=== PATIENT | female | born 1945 | race Caucasian/White ===

== ENCOUNTER → 2017-10-13 | Outpatient (CLI) | payer MEDICARE ==
[~2017-10-13] MED LIST: CYCL10TA PO; DICY20TA10 PO; ESTE1TAB4 PO; GLIM4TAB PO; HYDR-3366 PO; LEVO.075 PO; LEVO.1 PO; METF-324 PO; METF1000 PO; METHTAB PO; OMEP20TA93 PO; ROSU10 PO; ROSU40 PO; TRAM50TA PO; ZITH250T PO
== END ==
LOC: HORT 12:20
PROVIDERS: ATTEND Neurological Surgery
DX: M54.5 Low back pain (principal)
CPT/HCPCS: L0627

== ENCOUNTER → 2017-10-13 | Outpatient (CLI) | payer MEDICARE ==
[2017-10-13 11:54] LABS: AUTOMATED NEUTROPHIL # 3.4 TH/MM3 (1.8-7.7); BASOPHIL # 0.1 TH/MM3 (0-0.2); BASOPHIL % 0.8 % (0.0-2.0); EOSINOPHIL # 0.4 TH/MM3 (0-0.4); EOSINOPHIL % 5.5 % (0.0-4.0); HEMATOCRIT 39.4 % (35.0-46.0); LYMPH % 33.6 % (9.0-44.0); LYMPHOCYTE # 2.3 TH/MM3 (1.0-4.8); MEAN CELL VOLUME 87.3 FL (80.0-100.0); MEAN CORPUSCULAR HEMOGLOBIN 28.8 PG (27.0-34.0); MEAN PLATELET VOLUME 9.8 FL (7.0-11.0); MONO % 9.3 % (0.0-8.0); MONOCYTE # 0.6 TH/MM3 (0-0.9); NEUT % 50.8 % (16.0-70.0); PLATELET COUNT 284 TH/MM3 (150-450); RED BLOOD COUNT 4.51 MIL/MM3 (4.00-5.30); RED CELL DISTRIBUTION WIDTH 13.7 % (11.6-17.2); WHITE BLOOD COUNT 6.8 TH/MM3 (4.0-11.0)
[2017-10-13 12:03] LABS: PROTHROMBIN TIME - PATIENT 9.8 SEC (9.8-11.6)
[2017-10-13 12:30] LABS: ALBUMIN 3.7 GM/DL (3.4-5.0); AST (GOT) 22 U/L (15-37); BICARBONATE 24.7 MEQ/L (21.0-32.0); BLOOD UREA NITROGEN 17 MG/DL (7-18); CALCIUM 9.3 MG/DL (8.5-10.1); CHLORIDE 109 MEQ/L (98-107); CREATININE 1.15 MG/DL (0.50-1.00); GLOMERULAR FILTRATION RATE 46 ML/MIN (>89); GLUCOSE,FASTING 111 MG/DL (74-99); SODIUM (NA) 143 MEQ/L (136-145)
[2017-10-13 12:34] LABS: ALKALINE PHOSPHATASE 58 U/L (45-117); ALT (GPT) 30 U/L (10-53); TOTAL BILIRUBIN ADULT 0.4 MG/DL (0.2-1.0); TOTAL PROTEIN 7.4 GM/DL (6.4-8.2)
--- NOTE | 2017-10-13 12:44 | RADRPT ---
EXAM DATE/TIME: 10/13/2017 12:11 [facility] COMPARISON: No previous studies available for comparison. INDICATIONS : Evaluate for pneumonia. pneumothorax, or communicable disease. Pre op for surgery on 10/20/2017. MEDICAL HISTORY : None. SURGICAL HISTORY : None. ENCOUNTER: Initial ACUITY: 1 day PAIN SCORE: 0/10 LOCATION: Bilateral chest FINDINGS: PA and lateral views of the chest demonstrate the lungs to be symmetrically aerated without evidence of mass, infiltrate or effusion. The cardiomediastinal contours are unremarkable. Osseous structure s are intact. CONCLUSION: No evidence of acute cardiopulmonary disease. Misha Chaudhary MD on October 13, 2017 at 12:42 Board Certified Radiologist. This report was verified electronically.
[2017-10-13 13:10] LABS: BILIRUBIN, URINE NEG (NEG); BLOOD, URINE NEG (NEG); GLUCOSE,URINE NEG (NEG); KETONE, URINE NEG (NEG); NITRITE,URINE NEG (NEG); SQUAMOUS EPITHELIAL CELL URINE 3 /hpf (0-5); URINE COLOR YELLOW (YELLW/STRAW); URINE LEUKOCYTE ESTERASE NEG (NEG)
--- NOTE | 2017-10-13 20:29 | EKG ---
Date Performed: 10/13/2017 Time Performed: 11:21:00 PTAGE: 72 years EKG: Sinus rhythm WITH FIRST DEGREE AV BLOCK LOW QRS VOLTAGE IN PRECORDIAL LEADS NONSPECIFIC T-WAVE ABNORMALITY ABNORM AL ECG NO PREVIOUS TRACING DOCTOR: Dennis Antony Interpretating Date/Time 10/13/2017 20:28:10
== END ==
LOC: CPRE 10:52
PROVIDERS: ATTEND Neurological Surgery
DX: Z01.812 Encounter for preprocedural laboratory examination (principal); Z01.811 Encounter for preprocedural respiratory examination; Z01.810 Encounter for preprocedural cardiovascular examination; Z79.01 Long term (current) use of anticoagulants; M48.062 Spinal stenosis, lumbar region with neurogenic claudication; M51.36 Other intervertebral disc degeneration, lumbar region; M43.10 Spondylolisthesis, site unspecified; M48.8X6 Other specified spondylopathies, lumbar region; M54.5 Low back pain; I44.0 Atrioventricular block, first degree
CPT/HCPCS: 36415; 71046; 80053; 81001; 85025; 85610; 85730; 87640; 87641; 93005

== ENCOUNTER 2017-10-19 13:30 | Inpatient (IN) | payer MEDICARE ==
[~2017-10-19] VITALS: Ht 171.4 cm; Wt 80.6 kg
[~2017-10-19 13:30] MED LIST changes: -CYCL10TA PO; -DICY20TA10 PO; -GLIM4TAB PO; -HYDR-3366 PO; -LEVO.1 PO; -METF-324 PO; -METHTAB PO; -ROSU40 PO; -TRAM50TA PO; -ZITH250T PO
[2017-10-20] MEDS ORDERED: LACTATED RINGER'S 1000 ML IV PRN (06:00)
[2017-10-20] MEDS ORDERED: SODIUM CHLORID 0.9% 500 ML IV PRN (06:00)
[2017-10-20] MEDS ORDERED: METOPROLOL TARTRATE 25 MG TAB PO PRN (06:00)
[2017-10-20] MEDS ORDERED: CHLORHEXIDINE GLUCONATE 2 % 1 PACK (2 CLOTHS) TOPICAL PRN (06:00)
[2017-10-20] MEDS ORDERED: POVIDONE IODINE 5% (ANTISEPSIS KIT) 4 APPLICATIONS EACH NARE PRN (06:00)
[2017-10-20] MEDS ORDERED: VANCOMYCIN 1 GM/200 ML PREMIX ON-CALL IV SCH (06:15)
[2017-10-20] MEDS ORDERED: SODIUM CHLOR 0.9% 1000 ML INJ 1,000 ML IV SCH (06:15)
[2017-10-20] MEDS ORDERED: APREPITANT 40 MG CAP ONE (08:18)
[2017-10-20] MEDS ORDERED: THROMBIN (TOPICAL) 5,000 UNIT VIAL ONE (08:36)
[2017-10-20] MEDS ORDERED: BUPIVACAINE/EPINEPHRINE 0.5% 50 ML VIAL ONE (08:36)
[2017-10-20] MEDS ORDERED: GELFOAM SIZE 100 ONE (08:36)
[2017-10-20] MEDS ORDERED: VANCOMYCIN HCL 1000 MG VIAL ONE ×2 (08:36→11:49)
[2017-10-20] MEDS ORDERED: APREPITANT 40 MG CAP PO ONE (09:00)
[2017-10-20] MEDS ORDERED: ACETAMINOPHEN 1000 MG/100 ML 100 ML IV ONE (09:46)
[2017-10-20] MEDS ORDERED: PROPOFOL 200 MG/20 ML AMP IV ONE (12:00)
[2017-10-20] MEDS ORDERED: NEOSTIGMINE 5 MG/5 ML SYRINGE IV PUSH ONE (12:00)
[2017-10-20] MEDS ORDERED: LACTATED RINGER'S 1000 ML INJ 2,000 ML IV ONE (12:00)
[2017-10-20] MEDS ORDERED: DEXAMETHASONE SOD PHOS 4 MG/ML VIAL IV ONE (12:00)
[2017-10-20] MEDS ORDERED: PHENYLEPH/NS 1000 MCG/10 ML SYR IV ONE (12:00)
[2017-10-20] MEDS ORDERED: GLYCOPYRROLATE 1 MG/5 ML SYRINGE IV PUSH ONE (12:00)
[2017-10-20] MEDS ORDERED: ePHEDrine/NS 25 MG/5 ML SYRINGE IV ONE (12:00)
[2017-10-20] MEDS ORDERED: ROCURONIUM INJ 50 MG/5 ML SYRINGE IV PUSH ONE (12:00)
[2017-10-20] MEDS ORDERED: ONDANSETRON HCL 4 MG/2 ML VIAL IV ONE (12:00)
[2017-10-20] MEDS ORDERED: LIDOCAINE HCL 1% PF 5 ML SYRINGE OTHER ONE (12:00)
--- NOTE | 2017-10-20 12:27 | PD.OP ---
Tita Terry MD Operative Report Date of Surgery: Oct 20, 2017 Preoperative Diagnosis: Lumbar L4-5 facet and ligamentum flavum hypertrophy with disc protrusion and degenerative disc disease with grade 1 spondylolisthesis and spinal and foraminal stenosis; intractable low back pain with radiculopathy and neurogenic claudication Postoperative Diagnosis: Same Procedure: Lumbar L4-5 transforaminal interbody fusion; L4-5 pedicle screw fixation; L4 and L5 decompressive laminectomy with foraminotomy and discectomy; L4-5 interbody cage placement; microsurgical technique Anesthesia: Gen. endotracheal by Shy singh Surgeon: Darin Welch M.D. Child Psychology Teacher(s): Drea Colby Operation and Findings: Following initiation of general endotracheal anesthesia, the patient had a Rose catheter placed along with sequential compression devices. A gram of vancomycin was administered intravenously and he was turned in a prone position on a Jc frame, on a Chandra table, and all pressure points adequately padded. The lumbosacral region was then prepped with Chloraprep and sterilely draped with Ioban along the usual sterile draping. A right paraspinal skin incision was then made extending from the L4-L5 level after infiltrating the skin with 0.5% Marcaine with epinephrine solution extending down through the fascia. The muscle fibers were split using avascular fatty plane and detached from the underlying facets, transverse process and lateral portion of lamina on the right side and a self-retaining retractor used for exposure. Intraoperative fluoroscopy was also used for level of confirmation along with microscope magnification for further dissection. There was significant facet and ligamentum flavum hypertrophy noted at the L4-5 levels. Right L4-5 facet was resected with a drill bit along with the lamina and there was severe foraminal and lateral recess stenosis from hypertrophied ligamentum flavum and facet which were decompressed bilaterally through the unilateral approach. There was significant disc height collapse along with disc protrusion also leading to the foraminal stenosis. Epidural hemostasis was achieved with bipolar cautery and Gelfoam with thrombin. Subsequently entered into the disc space at the L4-5 level with a #15 blade and lola were used for discectomy. I then placed PEEK cage packed with local autograft bone and more local autograft bone was packed adjacent to the cage in interspace for added interbody fusion. With placement of the cage, I was able to distract the interspace and opened up the foramen further bilaterally. Subsequently in order to facilitate the fusion and provide stabilization, pedicle screw fixation was undertaken using Husser spine screws on entry point at the right L4-5 levels at the junction of the transverse process and facet. Subsequently using AP and lateral fluoroscopy tap and screw placement. The screws were then connected with a katie and locked in place with caps. The construct appeared very secure at this point. The area was then copiously irrigated with Vancomycin solution and powder. The retractors were removed and the bipolar cautery used for hemostasis. The muscle fascia was then approximated using 2-0 Vicryl interrupted stitches and then 3-0 Vicryl subcuticular stitches also placed in interrupted fashion. The final skin closure was completed with Mastisol and Steri-Strips. A sterile dressing was then applied. The patient then turned in supine position, extubated and taken to recovery room. There were no intraoperative complications. All sponge and needle counts were correct at the end of procedure. Estimated blood loss about 100 ml. Darin Welch MD Oct 20, 2017 12:27
[2017-10-20] MEDS ORDERED: MAGNESIUM SULFATE INJ 2 GM in SODIUM CHLORIDE 0.9% INJ 100 ML IV PRN (12:30)
[2017-10-20] MEDS ORDERED: ALUMINUM/MAGNESIUM/SIMETH 30 ML CUP PO PRN (12:30)
[2017-10-20] MEDS ORDERED: POTASSIUM CHLOR 20 MEQ PREMIX 100 ML IV PRN (12:30)
[2017-10-20] MEDS ORDERED: SODIUM CHLORIDE 0.9% FLUSH 10 ML FLUSH IV FLUSH PRN (12:30)
[2017-10-20] MEDS ORDERED: CALCIUM GLUCONATE INJ 1 GM in SODIUM CHLORIDE 0.9% INJ 100 ML IV PRN (12:30)
[2017-10-20] MEDS ORDERED: MENTHOL LOZENGE BUCCAL PRN (12:30)
[2017-10-20] MEDS ORDERED: GLUCAGON 1 MG/ML VIAL OTHER PRN (12:30)
[2017-10-20] MEDS ORDERED: DEXTROSE 50% IN WATER 50 ML VIAL(D50) IV PUSH PRN (12:30)
[2017-10-20] MEDS ORDERED: ZOLPIDEM TARTRATE 5 MG TAB PO PRN (12:30)
[2017-10-20] MEDS ORDERED: cloNIDine HCL 0.1 MG TAB PO PRN (13:00)
[2017-10-20] MEDS ORDERED: LACTULOSE SYRUP 20 GM/30 ML CUP PO PRN (13:00)
[2017-10-20] MEDS ORDERED: MORPHINE SULFATE 4 MG/ML INJ IV PUSH PRN (13:00)
[2017-10-20] MEDS ORDERED: CYCLOBENZAPRINE HCL 10 MG TAB PO PRN (13:00)
[2017-10-20] MEDS ORDERED: SENNOSIDES 8.6 MG TAB PO PRN (13:00)
[2017-10-20] MEDS ORDERED: ACETAMINOPHEN/HYDROcodone 325 MG/10 MG TAB PO PRN (13:00)
[2017-10-20] MEDS ORDERED: RESP: ALBUTEROL 2.5 MG/3 ML NEB (PRN) NEB (13:00)
[2017-10-20] MEDS ORDERED: ACETAMINOPHEN 325 MG TAB PO PRN (13:00)
[2017-10-20] MEDS ORDERED: MAGNESIUM HYDROXIDE SUSP 30 ML CUP PO PRN (13:00)
[2017-10-20] MEDS ORDERED: BISACODYL 10 MG SUPP RECTAL PRN (13:00)
[2017-10-20] MEDS ORDERED: ONDANSETRON HCL 4 MG/2 ML VIAL IV PUSH PRN (13:00)
[2017-10-20] MEDS ORDERED: PROMETHAZINE INJ 25 MG/ML VIAL IM PRN (13:00)
--- NOTE | 2017-10-20 13:01 | RADRPT ---
EXAM DATE/TIME: 10/20/2017 08:56 [facility] COMPARISON: No previous studies available for comparison. INDICATIONS : Post-op L4-L5 posterior lumbar fusion. MEDICAL HISTORY : None. SURGICAL HISTORY : None. ENCOUNTER: Initial ACUITY: 1 day PAIN SCORE: Non-responsive. LOCATION: Lumbar spine. FINDINGS: Two view examination was performed. Transpedicular screws are seen at the right L4 and L5 levels with a stabilization device at the L4-5 disc space. The hardware appears well placed.. CONCLUSION: Successful placement of hardware at the L4-L5 level. Misha Liu MD on October 20, 2017 at 12:59 Board Certified Radiologist. This report was verified electronically.
--- NOTE | 2017-10-20 13:02 | RADRPT ---
EXAM DATE/TIME: 10/20/2017 08:56 [facility] COMPARISON: No previous studies available for comparison. INDICATIONS : L4-L5 posterior lumbar fusion. Level localization. MEDICAL HISTORY : None. SURGICAL HISTORY : None. ENCOUNTER: Initial ACUITY: 1 day PAIN SCORE: Non-responsive. LOCATION: Lumbar spine. FINDINGS: A single lateral view of the lumbar spine was performed. There is a surgical asymmetric towards the p osterior elements of L4 and L5. CONCLUSION: Localization as described above. Misha Liu MD on October 20, 2017 at 13:00 Board Certified Radiologist. This report was verified electronically.
[2017-10-20] MEDS ORDERED: *morphine SULFATE 8 MG/ML PERIprocedure ONLY ONE (13:08)
[2017-10-20] MEDS: NS + KCL 20 MEQ INJ 1,000 ML IV SCH ×2 (13:15→22:53)
[2017-10-20] MEDS ORDERED: DO NOT ADM ANY ANTICOAGULANT DRUGS PRN (13:15)
[2017-10-20 13:31] LABS: AUTOMATED NEUTROPHIL # 8.1 TH/MM3 (1.8-7.7); BASOPHIL # 0.1 TH/MM3 (0-0.2); BASOPHIL % 0.5 % (0.0-2.0); EOSINOPHIL # 0.2 TH/MM3 (0-0.4); EOSINOPHIL % 1.7 % (0.0-4.0); HEMATOCRIT 36.4 % (35.0-46.0); LYMPH % 14.7 % (9.0-44.0); LYMPHOCYTE # 1.5 TH/MM3 (1.0-4.8); MEAN CELL VOLUME 86.5 FL (80.0-100.0); MEAN CORPUSCULAR HEMOGLOBIN 28.4 PG (27.0-34.0); MEAN CORPUSCULAR HGB CONC 32.9 % (32.0-36.0); MEAN PLATELET VOLUME 9.6 FL (7.0-11.0); MONO % 2.2 % (0.0-8.0); MONOCYTE # 0.2 TH/MM3 (0-0.9); NEUT % 80.9 % (16.0-70.0); PLATELET COUNT 264 TH/MM3 (150-450); RED BLOOD COUNT 4.21 MIL/MM3 (4.00-5.30); RED CELL DISTRIBUTION WIDTH 13.7 % (11.6-17.2)
[2017-10-20 13:48] LABS: BICARBONATE 25.4 MEQ/L (21.0-32.0); CALCIUM 8.5 MG/DL (8.5-10.1); CREATININE 1.16 MG/DL (0.50-1.00); MAGNESIUM 1.9 MG/DL (1.5-2.5)
[2017-10-20 16:00] VITALS: BP 111/59; PULSE 90; RESP 17; TEMP 97.2; O2SAT 95
[2017-10-20] MEDS: INSULIN NovoLIN REGULAR SUPPLEMENTAL SCALE SQ SCH ×2 (17:00→20:54)
[2017-10-20] MEDS: ACETAMINOPHEN/HYDROcodone 325 MG/10 MG TAB PO PRN ×2 (18:46→22:51)
[2017-10-20 20:35] VITALS: BP 101/55; PULSE 95; RESP 17; TEMP 98.7; O2SAT 95
[2017-10-20] MEDS: DOCUSATE SODIUM 50 MG/SENNA 8.6 MG TAB PO SCH (20:53)
[2017-10-20] MEDS: SODIUM CHLORIDE 0.9% FLUSH 10 ML FLUSH IV FLUSH SCH (20:55)
[2017-10-20 22:56] VITALS: BP 104/55; PULSE 97; RESP 17; TEMP 97.1; O2SAT 96
[2017-10-20 23:46] VITALS: BP 164/72; PULSE 86; RESP 17; TEMP 99.3; O2SAT 98
[2017-10-21] MEDS: ACETAMINOPHEN/HYDROcodone 325 MG/10 MG TAB PO PRN (03:30)
[2017-10-21 03:38] VITALS: BP 104/60; PULSE 89; RESP 17; TEMP 97.6; O2SAT 95
[2017-10-21] MEDS ORDERED: GLIM4TAB PO (05:13)
[2017-10-21] MEDS ORDERED: TRAM50TA PO (05:13)
[2017-10-21] MEDS ORDERED: LEVOTHYROXINE SODIUM 75 MCG TAB PO SCH (06:00)
[2017-10-21 08:00] VITALS: BP 112/58; PULSE 92; RESP 16; TEMP 97.9; O2SAT 94
[2017-10-21] MEDS: SODIUM CHLORIDE 0.9% FLUSH 10 ML FLUSH IV FLUSH SCH ×2 (09:00→21:47)
[2017-10-21] MEDS: ESTROGEN ESTERIF/ME TESTOST 0.625 MG/1.25 MG TAB PO SCH (09:00)
[2017-10-21] MEDS: ATORVASTATIN 20 MG TAB PO SCH (09:00)
[2017-10-21] MEDS ORDERED: PANTOPRAZOLE SOD 40 MG DELAYED RELEASE TAB PO SCH (09:00)
[2017-10-21] MEDS: PANTOPRAZOLE SOD 20 MG DELAYED RELEASE TAB PO SCH (09:20)
[2017-10-21] MEDS: DOCUSATE SODIUM 50 MG/SENNA 8.6 MG TAB PO SCH ×2 (09:20→21:42)
[2017-10-21] MEDS: NS + KCL 20 MEQ INJ 1,000 ML IV SCH ×2 (09:24→18:19)
--- NOTE | 2017-10-21 10:57 | HHI.NSPN ---
(Jabari Dorado) History Chief Complaint: Mild incisional pain. (Jabari Dorado) Interval History 10/21/17: Pt s/p Lumbar L4-5 transforaminal interbody fusion; L4-5 pedicle screw fixation; L4 and L5 decompressive laminectomy with foraminotomy and discectomy; L4-5 interbody cage placement on 10/20/17. She has mild incisional pain controlled. She states the [place] made her very sick with vomiting. She denies any radiculopathy or paresthesias in LEs. (Jabari Dorado) Review of Systems General: Negative for: fever, chills, insomnia Respiratory: Negative for: shortness of breath, cough, sputum Cardiovascular: Negative for: chest pain Gastrointestinal: Negative for: nausea, vomitting, diarrhea, constipation ( Jabari Dorado) Exam Results Vital Signs Date Time Temp Pulse Resp B/P (MAP) Pulse Ox O2 Delivery O2 Flow Rate FiO2 10/21/17 08:00 97.9 92 16 112/58 (76) 94 10/20/17 15:40 Nasal Cannula 2 Intake and Output 10/21/17 10/21/17 10/21/17 07:59 15:59 23:59 Intake Total 1200 ml Output Total 2850 ml Balance -1650 ml (Jabari Dorado) Physical Examination General: Pt awake and alert sitting up in chair in NAD. Eyes: Pupils equal. Sclera anicteric. Resp: CTA bilaterally Heart: NSR no murmurs Abd: Soft positive bs Skin: Incision clean and dry. New bandage placed. Muscle: Moves LEs with good strength. Neuro: Pt awake and alert. Follows commands well. Speech clear and appropriate. (Jabari Dorado) Lab, Micro, Other Results Last Impressions Lumbar Spine X-Ray 10/20/17 0000 Signed Impressions: Service Date/Time: October 08:56 - CONCLUSION: Localization as described above. Misha Liu MD Laboratory Tests Test 10/20/17 13:00 White Blood Count 10.0 TH/MM3 Red Blood Count 4.21 MIL/MM3 Hemoglobin 12.0 GM/DL Hematocrit 36.4 % Mean Corpuscular Volume 86.5 FL Mean Corpuscular Hemoglobin 28.4 PG Mean Corpuscular Hemoglobin Concent 32.9 % Red Cell Distribution Width 13.7 % Platelet Count 264 TH/MM3 Mean Platelet Volume 9.6 FL Neutrophils (%) (Auto) 80.9 % Lymphocytes (%) (Auto) 14.7 % Monocytes (%) (Auto) 2.2 % Eosinophils (%) (Auto) 1.7 % Basophils (%) (Auto) 0.5 % Neutrophils # (Auto) 8.1 TH/MM3 Lymphocytes # (Auto) 1.5 TH/MM3 Monocytes # (Auto) 0.2 TH/MM3 Eosinophils # (Auto) 0.2 TH/MM3 Basophils # (Auto) 0.1 TH/MM3 CBC Comment DIFF FINAL Differential Comment Blood Urea Nitrogen 13 MG/DL Creatinine 1.16 MG/DL Random Glucose 142 MG/DL Calcium Level 8.5 MG/DL Magnesium Level 1.9 MG/DL Sodium Level 143 MEQ/L Potassium Level 4.4 MEQ/L Chloride Level 111 MEQ/L Carbon Dioxide Level 25.4 MEQ/L Anion Gap 7 MEQ/L Estimat Glomerular Filtration Rate 46 ML/MIN (Jabari Dorado) Medical Decision Making Impression and Plan A: 72 y/o FM s/p lumbar L4-5 transforaminal interbody fusion; L4-5 pedicle screw fixation; L4 and L5 decompressive laminectomy with foraminotomy and discectomy; L4-5 interbody cage placement P: Continue with pain control continue with PT Discussed restrictions with pt. (Jabari Dorado) Attending Statement The exam, history, and the medical decision-making described in the above note were completed with the assistance of the mid-level provider. I reviewed and agree with the findings presented. I attest that I had a [id number] encounter with the patient on the same day, and personally performed and documented my assessment and findings in the medical record. Doing very well with resolved lower extremity symptoms and tolerable incisional pain. Ambulated with physical therapy and nursing staff. Requesting discharge home tomorrow if she is stable with adequate control pain then she could be discharged. Her friend at the bedside will help take care of her. (Darin Welch MD) Jabari Dorado Oct 21, 2017 10:57 Darin Welch MD Oct 21, 2017 12:29
[2017-10-21] MEDS: LEVOTHYROXINE SODIUM 50 MCG TAB PO SCH (11:45)
[2017-10-21 12:00] VITALS: BP 97/60; PULSE 93; RESP 16; TEMP 97.4; O2SAT 96
[2017-10-21] MEDS: INSULIN NovoLIN REGULAR SUPPLEMENTAL SCALE SQ SCH ×4 (12:00→21:00)
[2017-10-21] MEDS ORDERED: CYCL10TA PO (12:32)
[2017-10-21] MEDS ORDERED: HYDR-3366 PO (12:32)
[2017-10-21] MEDS: oxyCODONE/ACETAMINOPHEN 5 MG/325 MG TAB PO PRN ×2 (14:19→21:42)
[2017-10-21 16:00] VITALS: BP 125/59; PULSE 91; RESP 17; TEMP 97.9; O2SAT 97
[2017-10-21 20:00] VITALS: BP 130/65; PULSE 90; RESP 20; TEMP 98; O2SAT 96
[2017-10-22] VITALS: BP 106/56; PULSE 94; RESP 20; TEMP 98; O2SAT 92
[2017-10-22 04:00] VITALS: BP 139/63; PULSE 95; RESP 20; TEMP 98.2; O2SAT 95
[2017-10-22] MEDS: NS + KCL 20 MEQ INJ 1,000 ML IV SCH (04:19)
[2017-10-22] MEDS: oxyCODONE/ACETAMINOPHEN 5 MG/325 MG TAB PO PRN ×2 (04:21→08:30)
[2017-10-22] MEDS: LEVOTHYROXINE SODIUM 50 MCG TAB PO SCH (06:21)
[2017-10-22] MEDS: INSULIN NovoLIN REGULAR SUPPLEMENTAL SCALE SQ SCH (07:59)
[2017-10-22 08:00] VITALS: BP 126/64; PULSE 105; RESP 18; TEMP 97.6; O2SAT 96
[2017-10-22] MEDS: SODIUM CHLORIDE 0.9% FLUSH 10 ML FLUSH IV FLUSH SCH (08:21)
[2017-10-22] MEDS: ESTROGEN ESTERIF/ME TESTOST 0.625 MG/1.25 MG TAB PO SCH (08:21)
[2017-10-22] MEDS: ATORVASTATIN 20 MG TAB PO SCH (08:22)
[2017-10-22] MEDS: DOCUSATE SODIUM 50 MG/SENNA 8.6 MG TAB PO SCH (08:22)
[2017-10-22] MEDS: PANTOPRAZOLE SOD 20 MG DELAYED RELEASE TAB PO SCH (08:22)
[2017-10-22 09:39] VITALS: RESP 18
== END 2017-10-22 10:50 | disposition home or self-care (01) | DRG 460 ==
LOC: HSDI 10-20 05:45 → N06B 10-20 15:58
PROVIDERS: ADMIT Neurological Surgery; ATTEND Neurological Surgery
PROC: 0ST20ZZ Resection of Lumbar Vertebral Disc, Open Approach (ICD-10-PCS; 2017-10-20)
PROC: 0T9B70Z Drainage of Bladder with Drainage Device, Via Natural or Artificial Opening (ICD-10-PCS; 2017-10-20)
PROC: 0SG007J Fusion of Lumbar Vertebral Joint with Autologous Tissue Substitute, Posterior Approach, Anterior Column, Open Approach (ICD-10-PCS; principal; 2017-10-20 08:30)
DX: M43.16 Spondylolisthesis, lumbar region (principal); M48.061 Spinal stenosis, lumbar region without neurogenic claudication; M51.16 Intervertebral disc disorders with radiculopathy, lumbar region; Z87.891 Personal history of nicotine dependence
CPT/HCPCS: 72020; 72100; 76000; 80048; 82948; 83735; 85025; 86850; 86900; 86901; 94150; C1713; J0131; J0690; J1100; J2270; J2370; J2405; J2710; J3010; J3370; J3480; J7120; J8501

== ENCOUNTER 2017-10-24 15:06 | Observation (INO) | payer MEDICARE ==
[2017-10-24] VITALS (7 sets, daily range): BP systolic 94–154; BP diastolic 58–72; PULSE 72–119; RESP 16–20; TEMP 98–98.2; O2SAT 94–99
[~2017-10-24] VITALS: Ht 170.2 cm; Wt 83.0 kg
[~2017-10-24 15:06] MED LIST changes: +CYCL10TA PO; +GLIM4TAB PO; +HYDR-3366 PO; +TRAM50TA PO
[2017-10-24] MEDS ORDERED: DICY20TA10 PO (15:33)
[2017-10-24] MEDS ORDERED: SODIUM CHLOR 0.9% 1000 ML INJ 1,000 ML IV SCH (15:42)
[2017-10-24] MEDS ORDERED: ONDANSETRON HCL 4 MG/2 ML VIAL IVP ONE (15:45)
[2017-10-24] MEDS ORDERED: SODIUM CHLORIDE 0.9% FLUSH 10 ML FLUSH IV FLUSH PRN ×2 (15:45→20:00)
--- NOTE | 2017-10-24 16:17 | PD ---
HPI Chief Complaint: Musculoskeletal Complaint Time Seen by Provider: 15:31 Travel History International Travel<30 days: No Contact w/Intl Traveler<30days: No Traveled to known affect area: No History of Present Illness HPI Patient is a 72-year-old female who presents to emergency room with complaints of left-sided numbness as well as abdominal pain. Patient reports that she has history of L4-L5 laminectomy on October 20, [address] Darin Welch. Patient reports that she began to have numbness to her left thigh starting this morning. Patient denies any trauma, denies any falls. Patient reports that pain is well controlled. Reports no pain to her back, denies sciatica. Patient denies any fever or chills. Patient reports that she has been having lower abdominal pain since this morning, reports that she has been feeling nauseous and did vomit today. Patient also reports being constipated, last bowel movement was 5 days ago. Patient did call Dr. Welch's office and was told to come to the ER for evaluation of her numbness PFSH Past Medical History Cancer: No Cardiovascular Problems: No High Cholesterol: Yes Diabetes: Yes Patient Takes Glucophage: Yes Endocrine: Yes Gastrointestinal Disorders: Yes (GERD, DIVERTICULITIS) Genitourinary: No Hepatitis: No Hiatal Hernia: No Musculoskeletal: Yes (ARTHRITIS) Neurologic: Yes (R LEG PAIN) Psychiatric: No Reproductive: No Respiratory: No Thyroid Disease: Yes Influenza Vaccination: Yes Past Surgical History AICD: No Appendectomy: Yes Gynecologic Surgery: Yes (HYSTERECTOMY, APPY) Hysterectomy: Yes Joint Replacement: Yes (KNEE) Neurologic Surgery: Yes (ACDF) Pacemaker: No Valve Replacement: Yes (NECK) Other Surgery: Yes Social History Alcohol Use: Yes (BEER ON WEKENDS) Tobacco Use: No Substance Use: No Allergies-Medications (Allergen,Severity, Reaction): Coded Allergies: oxycodone (Verified Allergy, Severe, Confusion, 10/24/17) PT BECOMES CONFUSED AND COMBATIVE Reported Meds & Prescriptions Reported Meds & Active Scripts Active Flexeril (Cyclobenzaprine HCl) 10 Mg Tab 10 Mg PO TID PRN [place] (Hydrocodone-Acetaminophen) 10-325 Mg Tab 1 Tab PO Q4H PRN Reported Dicyclomine (Dicyclomine HCl) 20 Mg Tab 20 Mg PO QID Glimepiride 4 Mg Tab 4 Mg PO DAILY Take with breakfast or first main meal Metformin (Metformin HCl) 1,000 Mg Tab 1,000 Mg PO DAILY With a meal Omeprazole 20 Mg Tab 20 Mg PO DAILY Synthroid (Levothyroxine Sodium) 75 Mcg Tab 50 Mcg PO DAILY Crestor (Rosuvastatin Calcium) 10 Mg Tab 20 Mg PO DAILY Esterified Estrogens-Methyltestosterone 0.625-1.25 Mg Tab 1 Tab PO DAILY Review of Systems General / Constitutional: No: Fever, Chills Eyes: No: Visual changes HENT: No: Headaches Cardiovascular: No: Chest Pain or Discomfort Respiratory: No: Shortness of Breath Gastrointestinal: Positive: Nausea, Vomiting, Abdominal Pain, Constipation Genitourinary: No: Dysuria Musculoskeletal: No: Pain Skin: No Rash Neurologic: No: Weakness Psychiatric: No: Depression Endocrine: No: Polydipsia Hematologic/Lymphatic: No: Easy Bruising Physical Exam Narrative GENERAL: Mild distress SKIN: Focused skin assessment warm/dry. HEAD: Atraumatic. Normocephalic. EYES: Pupils equal and round. No scleral icterus. No injection or drainage. ENT: No nasal bleeding or discharge. Mucous membranes pink and moist. NECK: Trachea midline. No JVD. CARDIOVASCULAR: Regular rate and rhythm. No murmur appreciated. RESPIRATORY: No accessory muscle use. Clear to auscultation. Breath sounds equal bilaterally. GASTROINTESTINAL: Abdomen soft, non-tender, nondistended. Hepatic and splenic margins not palpable. BACK: lumbar incision are C/D/I with no signs of drainage or infection MUSCULOSKELETAL: No obvious deformities. No clubbing. No cyanosis. No edema. NEUROLOGICAL: Awake and alert. No obvious cranial nerve deficits. Motor grossly within normal limits. Normal speech. PSYCHIATRIC: Appropriate mood and affect; insight and judgment normal. Data Data Last Documented VS Vital Signs Date Time Temp Pulse Resp B/P (MAP) Pulse Ox O2 Delivery O2 Flow Rate FiO2 10/24/17 19:16 87 18 109/72 (84) 98 Room Air 10/24/17 15:12 98.2 Orders Orders Mri L Spine W&W/O Contrast (10/24/17 ) Complete Blood Count With Diff (10/24/17 15:42) Comprehensive Metabolic Panel (10/24/17 15:42) Prothrombin Time / Inr (Pt) (10/24/17 15:42) Act Partial Throm Time (Ptt) (10/24/17 15:42) Urinalysis - C+S If Indicated (10/24/17 15:42) Ct Abd/Pel W/O Iv Contrast (10/24/17 15:42) Iv Access Insert/Monitor (10/24/17 15:42) Ecg Monitoring (10/24/17 15:42) Oximetry (10/24/17 15:42) Ondansetron Inj (Zofran Inj) (10/24/17 15:45) Sodium Chlor 0.9% 1000 Ml Inj (Ns 1000 M (10/24/17 15:42) Sodium Chloride 0.9% Flush (Ns Flush) (10/24/17 15:45) Lorazepam Inj (Ativan Inj) (10/24/17 16:45) Gadodiamide Pf Inj (Omniscan Pf Inj) (10/24/17 17:25) Blood Culture (10/24/17 19:28) Consult Neurosurgery (10/24/17 ) Polyethylene Glycol (Miralax) (10/24/17 19:45) (Hub Use Only)Inp Phy Cons/Ref (10/24/17 ) Place In Observation (10/24/17 19:43) Vital Signs (Adult) Q4H (10/24/17 19:43) Elevate Head Of Bed (10/24/17 19:43) Complete Blood Count With Diff (10/25/17 06:00) Basic Metabolic Panel (Bmp) (10/25/17 06:00) Prothrombin Time / Inr (Pt) (10/25/17 06:00) Act Partial Throm Time (Ptt) (10/25/17 06:00) Resp Incentive Spirometry (10/24/17 19:43) Consult Pt Eval & Treat (10/24/17 19:43) Activity Oob With Assistance PRN (10/24/17 19:43) Scd Bilateral/Knee High LINDSAY.QSHIFT (10/24/17 19:43) Neuro Checks RT.Q4H (10/24/17 19:43) 1/2 Ns + Kcl 20 Meq Inj (1/2 Ns + Kcl 20 (10/24/17 19:43) W[place]gren Sedimentation Rate (10/24/17 19:43) Cyclobenzaprine (Flexeril) (10/24/17 20:00) Dicyclomine (Bentyl) (10/24/17 21:00) Estrogen-Methyltest 0.625-1.25 (Estrates (10/25/17 09:00) Glimepiride (Amaryl) (10/25/17 09:00) Acetamin-Hydrocod 325-10 Mg ([place] 10-32 (10/24/17 20:00) Levothyroxine (Synthroid) (10/25/17 09:00) Metformin (Glucophage) (10/25/17 09:00) (Nf) Omeprazole (10/25/17 09:00) Blood Glucose Goal (Criteria) (10/24/17:52) Hypoglycemia 70 Mg/Dl Or < (10/24/17:52) Notify Dr: Other (10/24/17 19:52) Dextrose 50% In [place] (Vial) Inj (D50w (Vi (10/24/17 20:00) Glucagon Inj (Glucagon Inj) (10/24/17 20:00) Insulin Human Reg Supp Scale (Novolin R (10/24/17 21:00) Place In Observation (10/24/17 ) Vital Signs (Adult) Q4H (10/24/17 19:50) Activity Bed Rest (10/24/17 19:50) Diet Npo (10/25/17 Breakfast) Sodium Chlor 0.9% 1000 Ml Inj (Ns 1000 M (10/24/17 19:50) Sodium Chloride 0.9% Flush (Ns Flush) (10/24/17 20:00) Sodium Chloride 0.9% Flush (Ns Flush) (10/24/17 21:00) Acetaminophen (Tylenol) (10/24/17 20:00) Ondansetron Inj (Zofran Inj) (10/24/17 20:00) Pt Request For Service (10/24/17 19:50) Naloxone Inj (Narcan Inj) (10/24/17 20:00) Docusate Sodium-Senna (Dalila-Colace) (10/24/17 21:00) Magnesium Hydroxide Liq (Milk Of Magnesi (10/24/17 20:00) Sennosides (Senokot) (10/24/17 20:00) Bisacodyl Supp (Dulcolax Supp) (10/24/17 20:00) Lactulose Liq (Lactulose Liq) (10/24/17 20:00) ^ Other Nursing Orders (10/24/17 19:50) Admit Order (Ed Use Only) (10/24/17 19:58) Labs Laboratory Tests Test 10/24/17 16:00 10/24/17 19:10 White Blood Count 9.7 TH/MM3 Red Blood Count 4.03 MIL/MM3 Hemoglobin 11.4 GM/DL Hematocrit 34.9 % Mean Corpuscular Volume 86.6 FL Mean Corpuscular Hemoglobin 28.2 PG Mean Corpuscular Hemoglobin Concent 32.6 % Red Cell Distribution Width 12.6 % Platelet Count 265 TH/MM3 Mean Platelet Volume 9.3 FL Neutrophils (%) (Auto) 72.4 % Lymphocytes (%) (Auto) 16.4 % Monocytes (%) (Auto) 5.7 % Eosinophils (%) (Auto) 4.2 % Basophils (%) (Auto) 1.3 % Neutrophils # (Auto) 7.0 TH/MM3 Lymphocytes # (Auto) 1.6 TH/MM3 Monocytes # (Auto) 0.6 TH/MM3 Eosinophils # (Auto) 0.4 TH/MM3 Basophils # (Auto) 0.1 TH/MM3 CBC Comment AUTO DIFF Differential Comment AUTO DIFF CONFIRMED Prothrombin Time 9.7 SEC Prothromb Time International Ratio 1.0 RATIO Activated Partial Thromboplast Time 22.9 SEC Blood Urea Nitrogen 17 MG/DL Creatinine 1.20 MG/DL Random Glucose 90 MG/DL Total Protein 7.6 GM/DL Albumin 3.1 GM/DL Calcium Level 9.6 MG/DL Alkaline Phosphatase 85 U/L Aspartate Amino Transf (AST/SGOT) 46 U/L Alanine Aminotransferase (ALT/SGPT) 56 U/L Total Bilirubin 0.7 MG/DL Sodium Level 135 MEQ/L Potassium Level 3.7 MEQ/L Chloride Level 99 MEQ/L Carbon Dioxide Level 26.6 MEQ/L Anion Gap 9 MEQ/L Estimat Glomerular Filtration Rate 44 ML/MIN Urine Color YELLOW Urine Turbidity CLEAR Urine pH 6.5 Urine Specific [place] LESS/EQUAL 1.005 Urine Protein NEG mg/dL Urine Glucose (UA) NEG mg/dL Urine Ketones NEG mg/dL Urine Occult Blood NEG Urine Nitrite NEG Urine Bilirubin NEG Urine Urobilinogen 0.2 MG/DL Urine Leukocyte Esterase NEG Urine WBC 0-2 /hpf Urine Squamous Epithelial Cells 0-5 /hpf Microscopic Urinalysis Comment CULT NOT INDICATED MDM Medical Decision Making Medical Screen Exam Complete: Yes Emergency Medical Condition: Yes Medical Record Reviewed: Yes Interpretation(s) Vital Signs Date Time Temp Pulse Resp B/P (MAP) Pulse Ox O2 Delivery O2 Flow Rate FiO2 10/24/17 16:03 20 96 Room Air 10/24/17 15:12 98.2 119 16 154/65 (94) 96 Differential Diagnosis Constipation, fecal impaction, lumbar hematoma versus abscess, diverticulitis Narrative Course 72-year-old female presents the emergency room with complaints of the left thigh numbness as well as lower abdominal tenderness which began this morning. Patient is postop day #4 -status post L4-L5 laminectomy by Dr. Welch During the course of the patients emergency department visit, the patients history, examination, and differential diagnosis were reviewed with the patient. The patient was placed on a awake overnight monitor with oximetry and frequent blood pressure monitoring. The patient had an IV access obtained and blood work sent for analysis. The patients laboratory studies were reviewed and remarkable for CBC & BMP Diagram 10/24/17 16:00 Total Protein 7.6, Albumin 3.1 L, Calcium Level 9.6, Alkaline Phosphatase 85, Aspartate Amino Transf (AST/SGOT) 46 H, Alanine Aminotransferase (ALT/SGPT) 56 H , Total Bilirubin 0.7 Radiology studies were reviewed and remarkable for Last Impressions Abdomen/Pelvis CT 10/24/17 1542 Signed Impressions: Service Date/Time: Tuesday, October 24, 2017 16:05 - CONCLUSION: 1. Scattered diverticulosis without diverticulitis. 2. Distended urinary bladder containing air likely iatrogenic. 3. Bibasilar densities likely atelectasis. Jabari Brady MD MRI of the L-spine with and without contrast shows a small 1.2 x 0.5 cm fluid collection seen in the posterior epidural space, this could represent postop changes but also could raise concerns for superimposed inflammatory/infectious changes. Case reviewed with Dr. Sears who is on-call today, recommends blood cultures and transferred to [facility] for observation. Does not recommend antibiotics at this time. Patient is agreeable with plan of care. case reviewed with Dr. Hernandez who accepts pt to service Diagnosis Primary Impression: Lumbar surgical wound fluid collection Qualified Codes: T81.89XA - Other complications of procedures, not elsewhere classified, initial encounter Admitting Information Admitting Physician Requests: Observation Kavita Casey DO Oct 24, 2017 16:17
--- NOTE | 2017-10-24 16:24 | RADRPT ---
EXAM DATE/TIME: 10/24/2017 16:05 [facility] COMPARISON: No previous studies available for comparison. INDICATIONS : Status post back surgery a few days ago. Diffuse abdominal pain with nausea and vomiting with left lo wer extremity numbness. ORAL CONTRAST: No oral contrast ingested. RADIATION DOSE: 22.50 CTDIvol (mGy) MEDICAL HISTORY : Hypercholesterolemia. Gastroesophageal reflux disease. Diverticulitis.Diabetes. SURGICAL HISTORY : Hysterectomy. Appendectomy.Back surgery. ENCOUNTER: Initial ACUITY: 4 - 6 days PAIN SCALE: 5/10 LOCATION: pelvis abdomen TECHNIQUE: Volumetric scanning of the abdomen and pelvis was performed. Using automated exposure control and ad justment of the mA and/or kV according to patient size, radiation dose was kept as low as reasonably achievable to obtain optimal diagnostic quality images. DICOM format image data is available electro nically for review and comparison. FINDINGS: LOWER LUNGS: Bibasilar densities. LIVER: Homogeneous density without lesion. There is no dilation of the biliary tree. No calcified gallston es. SPLEEN: Normal size without lesion. PANCREAS: Within normal limits. KIDNEYS: Normal in size and shape. There is no mass, stone, or hydronephrosis. ADRENAL GLANDS: Within normal limits. VASCULAR: There is no aortic aneurysm. BOWEL/MESENTERY: Diverticulosis without diverticulitis. There is no free intraperitoneal air or fluid. ABDOMINAL WALL: Within normal limits. RETROPERITONEUM: There is no lymphadenopathy. BLADDER: Distended urinary bladder containing air. REPRODUCTIVE: Within normal limits. INGUINAL: There is no lymphadenopathy or hernia. MUSCULOSKELETAL: Postsurgical changes lower lumbar spine. CONCLUSION: 1. Scattered diverticulosis without diverticulitis. 2. Distended urinary bladder containing air likely iatrogenic. 3. Bibasilar densities likely atelectasis. Jabari Brady MD on October 24, 2017 at 16:18 Board Certified Radiologist. This report was verified electronically.
[2017-10-24 16:25] LABS: BASOPHIL # 0.1 TH/MM3 (0-0.2); BASOPHIL % 1.3 % (0.0-2.0); EOSINOPHIL # 0.4 TH/MM3 (0-0.4); EOSINOPHIL % 4.2 % (0.0-4.0); HEMATOCRIT 34.9 % (35.0-46.0); HEMOGLOBIN 11.4 GM/DL (11.6-15.3); LYMPH % 16.4 % (9.0-44.0); LYMPHOCYTE # 1.6 TH/MM3 (1.0-4.8); MEAN CELL VOLUME 86.6 FL (80.0-100.0); MEAN CORPUSCULAR HEMOGLOBIN 28.2 PG (27.0-34.0); MEAN CORPUSCULAR HGB CONC 32.6 % (32.0-36.0); MEAN PLATELET VOLUME 9.3 FL (7.0-11.0); MONO % 5.7 % (0.0-8.0); MONOCYTE # 0.6 TH/MM3 (0-0.9); NEUT % 72.4 % (16.0-70.0); PLATELET COUNT 265 TH/MM3 (150-450); RED BLOOD COUNT 4.03 MIL/MM3 (4.00-5.30); RED CELL DISTRIBUTION WIDTH 12.6 % (11.6-17.2); WHITE BLOOD COUNT 9.7 TH/MM3 (4.0-11.0)
[2017-10-24 16:40] LABS: CHLORIDE 99 MEQ/L (98-107); SODIUM (NA) 135 MEQ/L (136-145)
[2017-10-24 16:43] LABS: CALCIUM 9.6 MG/DL (8.5-10.1); PROTHROMBIN TIME - PATIENT 9.7 SEC (9.8-11.6)
[2017-10-24 16:44] LABS: ALBUMIN 3.1 GM/DL (3.4-5.0); BICARBONATE 26.6 MEQ/L (21.0-32.0); BLOOD UREA NITROGEN 17 MG/DL (7-18); GLUCOSE,RANDOM 90 MG/DL (74-106)
[2017-10-24] MEDS ORDERED: LORazepam 2 MG/ML VIAL IV PUSH ONE (16:45)
[2017-10-24 16:47] LABS: ALT (GPT) 56 U/L (10-53); AST (GOT) 46 U/L (15-37); GLOMERULAR FILTRATION RATE 44 ML/MIN (>89)
[2017-10-24 16:48] LABS: TOTAL BILIRUBIN ADULT 0.7 MG/DL (0.2-1.0); TOTAL PROTEIN 7.6 GM/DL (6.4-8.2)
[2017-10-24 16:50] LABS: ALKALINE PHOSPHATASE 85 U/L (45-117)
[2017-10-24] MEDS ORDERED: GADODIAMIDE PF 287 MG/ML 20 ML VIAL (for RAD MRI) IV PUSH ONE (17:25)
--- NOTE | 2017-10-24 18:37 | RADRPT ---
EXAM DATE/TIME: 10/24/2017 17:16 [place] COMPARISON: SPINE LUMBAR LTD (AP & LAT), October 20, 2017, 8:56. INDICATIONS : Left thigh numbness. Post laminectomy. CONTRAST: 17 cc Omniscan (gadodiamide) IV MEDICAL HISTORY : None. SURGICAL HISTORY : Fusion, lumbar. Hysterectomy. Fusion, cervical. ENCOUNTER: Initial ACUITY: 4-6 days PAIN SCORE: 2/10 LOCATION: back TECHNIQUE: Multiplanar multisequence MRI of the lumbar spine was performed with and without contrast. FINDINGS: The most caudal appearing lumbar vertebra is numbered as L5. VERTEBRAE: There are right transpedicular screws at the L4 and L5 levels with stabilization device at the right L4-5 disc region. There is mild anterior subluxation of L4 on L5 in the order of 4 mm. There is edema seen throughout the posterior subcutaneous soft tissues. CONUS: Normal level and configuration. T12-L1: This region was only included on the sagittal images. The significant compression of the thecal sac i s not seen. L1-L2: The disc demonstrates decreased signal and decreased height. There is mild diffuse disc bulge causing a mild impression on the anterior aspect of the thecal sac. There continues to be CSF around the ner ve roots. The neural foramina are patent bilaterally. There is mild facet hypertrophy. L2-L3: The thecal sac has a normal diameter. No evidence of disc bulge or protrusion. The neural foramina are patent bilaterally. There is mild facet hypertrophy. L3-L4: The thecal sac has a normal diameter. No evidence of disc bulge or protrusion. The neural foramina are patent bilaterally. There is mild facet hypertrophy. L4-L5: There is susceptibility artifact from the right transpedicular screws. The signal within the vertebra l bodies appears grossly normal given the susceptibility artifact. There is increased signal seen thr oughout the L4-5 disc. There is diffuse moderate disc bulge. There is severe facet hypertrophy. There is epidural enhancement at the right lateral epidural space. These changes lead to severe stenosis. There also is epidural enhancement extending into the right neural foramina. The left neural foramina is patent. On the sagittal images there appears to be a small possible fluid collection seen in the posterior epidural space measuring 1.2 x 0.5 cm. A small seroma or abscess could have this appearance . This is surrounded by epidural enhancement. L5-S1: The disc demonstrates decreased height. There is slight disc bulging without significant stenosis. Th e neural foramina are patent bilaterally. There is moderate facet hypertrophy. CONCLUSION: 1. Severe stenosis at the L4-L5 level caused by combination of disc bulge, severe facet hypertrophy a nd epidural enhancement in the right lateral epidural space and exiting into the right neural foramin a. The patient appears be status post right hemilaminectomy. There is a small 1.2 x 0.5 cm fluid lito ection seen in the posterior epidural space. Enhancement can be seen from postoperative change but ap pears quite prominent raising the current concern for superimposed inflammatory/infectious change. 2. Facet hypertrophy seen throughout. Misha Liu MD on October 24, 2017 at 18:23 Board Certified Radiologist. This report was verified electronically.
[2017-10-24 19:17] LABS: BILIRUBIN, URINE NEG (NEG); BLOOD, URINE NEG (NEG); GLUCOSE,URINE NEG (NEG); KETONE, URINE NEG (NEG); NITRITE,URINE NEG (NEG); PH, URINE 6.5 (5.0-8.5); URINE COLOR YELLOW (YELLW/STRAW); URINE LEUKOCYTE ESTERASE NEG (NEG)
[2017-10-24 19:32] LABS: SQUAMOUS EPITHELIAL CELL URINE 0-5 /hpf (0-5); WBC, URINE 0-2 /hpf (0-5)
[2017-10-24] MEDS ORDERED: 1/2 NS + KCL 20 MEQ INJ 1,000 ML IV SCH (19:43)
[2017-10-24] MEDS ORDERED: POLYETHYLENE GLYCOL 17 GM PKG PO ONE (19:45)
[2017-10-24] MEDS ORDERED: GLUCAGON 1 MG/ML VIAL OTHER PRN (20:00)
[2017-10-24] MEDS ORDERED: CYCLOBENZAPRINE HCL 10 MG TAB PO PRN (20:00)
[2017-10-24] MEDS ORDERED: MAGNESIUM HYDROXIDE SUSP 30 ML CUP PO PRN (20:00)
[2017-10-24] MEDS ORDERED: BISACODYL 10 MG SUPP RECTAL PRN (20:00)
[2017-10-24] MEDS ORDERED: NALOXONE HCL 0.4 MG/ML AMP IV PUSH PRN (20:00)
[2017-10-24] MEDS ORDERED: SENNOSIDES 8.6 MG TAB PO PRN (20:00)
[2017-10-24] MEDS ORDERED: ACETAMINOPHEN/HYDROcodone 325 MG/10 MG TAB PO PRN (20:00)
[2017-10-24] MEDS ORDERED: DEXTROSE 50% IN WATER 50 ML VIAL(D50) IV PUSH PRN (20:00)
[2017-10-24] MEDS ORDERED: LACTULOSE SYRUP 20 GM/30 ML CUP PO PRN (20:00)
[2017-10-24] MEDS ORDERED: ONDANSETRON HCL 4 MG/2 ML VIAL IVP PRN (20:00)
[2017-10-24] MEDS ORDERED: ACETAMINOPHEN 325 MG TAB PO PRN (20:00)
[2017-10-24] MEDS: DOCUSATE SODIUM 50 MG/SENNA 8.6 MG TAB PO SCH (20:45)
[2017-10-24] MEDS: DICYCLOMINE HCL 20 MG TAB PO SCH (20:45)
[2017-10-24] MEDS: INSULIN NovoLIN REGULAR SUPPLEMENTAL SCALE SQ SCH (20:50)
[2017-10-25] MEDS: SODIUM CHLORIDE 0.9% FLUSH 10 ML FLUSH IV FLUSH SCH ×3 (00:45→20:39)
[2017-10-25] MEDS: SODIUM CHLOR 0.9% 1000 ML INJ 1,000 ML IV SCH ×2 (00:45→08:05)
--- NOTE | 2017-10-25 03:38 | HHI.HP ---
[facility] Rocco Terry M.D. Admission Diagnosis epidural infection vs inflammation s/p laminectomy, Postop infection Diagnoses: Travel History International Travel<30 Days: No Contact w/Intl Traveler <30 Da: No Traveled to Known Affected Are: No History of Present Illness 72-year-old female with a past medical history significant for diabetes mellitus and hypothyroidism who is status post L4-5 transforaminal interbody fusion, L4-5 pedicle screw fixation and decompressive laminectomy with foraminotomy and discectomy and cage placement presents to the emergency department for the evaluation of left lower extremity numbness. The patient was discharged home on Tuesday morning and states she was feeling well. She continued in her usual state of health until yesterday around 7:30 AM when she woke up and found her left lower extremity to be numb. She reports that she is able to move the left leg however it is weaker than baseline. She denies any chest pain or shortness of breath. No nausea/vomiting/diarrhea. No abdominal pain. No fever/chills. Review of Systems Except as stated in HPI: all other systems reviewed are Neg Past Family Social History Past Medical History Hypothyroidism Diabetes mellitus Past Surgical History L4-5 transforaminal interbody fusion, L4-5 pedicle screw fixation and decompressive laminectomy with foraminotomy and discectomy and cage placement Neck surgery Right shoulder repair Appendectomy Tonsillectomy Allergies: Coded Allergies: oxycodone (Verified Allergy, Severe, Confusion, 10/24/17) PT BECOMES CONFUSED AND COMBATIVE Family History Family history of diabetes mellitus. Social History Occasional alcohol. Negative for tobacco and illicit drugs. Physical Exam Vital Signs Vital Signs Date Time Temp Pulse Resp B/P (MAP) Pulse Ox O2 Delivery O2 Flow Rate FiO2 10/24/17 23:56 98.0 99 17 94/58 (70) 94 10/24/17 21:00 72 16 108/58 (75) 98 Room Air 10/24/17 19:16 87 18 109/72 (84) 98 Room Air 10/24/17 18:21 102 18 108/71 (83) 99 Room Air 10/24/17 16:29 88 18 110/65 (80) 95 Room Air 10/24/17 16:03 20 96 Room Air 10/24/17 15:12 98.2 119 16 154/65 (94) 96 Physical Exam GENERAL: female lying in bed SKIN: No rashes, ecchymoses or lesions. Cool and dry. HEAD: Atraumatic. Normocephalic. No temporal or scalp tenderness. EYES: Pupils equal round and reactive. Extraocular motions intact. No scleral icterus. No injection or drainage. ENT: Nose without bleeding, purulent drainage or septal hematoma. Throat without erythema, tonsillar hypertrophy or exudate. Uvula midline. Airway patent. NECK: Trachea midline. No JVD or lymphadenopathy. Supple, nontender, no meningeal signs. CARDIOVASCULAR: Regular rate and rhythm without murmurs, gallops, or rubs. RESPIRATORY: Clear to auscultation. Breath sounds equal bilaterally. No wheezes , rales, or rhonchi. GASTROINTESTINAL: Abdomen soft, non-tender, nondistended. No hepato-splenomegaly , or palpable masses. No guarding. MUSCULOSKELETAL: Extremities without clubbing, cyanosis, or edema. No joint tenderness, effusion, or edema noted. No calf tenderness. NEUROLOGICAL: Awake and alert. Cranial nerves II through XII intact. Decreased sensation left lower extremity. 3/5 strength left lower extremity. Laboratory Laboratory Tests Test 10/24/17 16:00 10/24/17 19:10 10/24/17 20:12 White Blood Count 9.7 Red Blood Count 4.03 Hemoglobin 11.4 Hematocrit 34.9 Mean Corpuscular Volume 86.6 Mean Corpuscular Hemoglobin 28.2 Mean Corpuscular Hemoglobin Concent 32.6 Red Cell Distribution Width 12.6 Platelet Count 265 Mean Platelet Volume 9.3 Neutrophils (%) (Auto) 72.4 Lymphocytes (%) (Auto) 16.4 Monocytes (%) (Auto) 5.7 Eosinophils (%) (Auto) 4.2 Basophils (%) (Auto) 1.3 Neutrophils # (Auto) 7.0 Lymphocytes # (Auto) 1.6 Monocytes # (Auto) 0.6 Eosinophils # (Auto) 0.4 Basophils # (Auto) 0.1 CBC Comment AUTO DIFF Differential Comment AUTO DIFF CONFIRMED Prothrombin Time 9.7 Prothromb Time International Ratio 1.0 Activated Partial Thromboplast Time 22.9 Blood Urea Nitrogen 17 Creatinine 1.20 Random Glucose 90 Total Protein 7.6 Albumin 3.1 Calcium Level 9.6 Alkaline Phosphatase 85 Aspartate Amino Transf (AST/SGOT) 46 Alanine Aminotransferase (ALT/SGPT) 56 Total Bilirubin 0.7 Sodium Level 135 Potassium Level 3.7 Chloride Level 99 Carbon Dioxide Level 26.6 Anion Gap 9 Estimat Glomerular Filtration Rate 44 Urine Color YELLOW Urine Turbidity CLEAR Urine pH 6.5 Urine Specific [place] LESS/EQUAL 1.005 Urine Protein NEG Urine Glucose (UA) NEG Urine Ketones NEG Urine Occult Blood NEG Urine Nitrite NEG Urine Bilirubin NEG Urine Urobilinogen 0.2 Urine Leukocyte Esterase NEG Urine WBC 0-2 Urine Squamous Epithelial Cells 0-5 Microscopic Urinalysis Comment CULT NOT INDICATED Erythrocyte Sedimentation Rate 39 Date/Time Source Procedure Growth Status 10/24/17 22:20 Blood Peripheral Aerobic Blood Culture Pending Received 10/24/17 22:20 Blood Peripheral Anaerobic Blood Culture Pending Received Result Diagram: 10/24/17 1600 10/24/17 1600 Caprini VTE Risk Assessment Caprini VTE Risk Assessment: Mod/High Risk (score >= 2) Caprini Risk Assessment Model Point Value = 1 Point Value = 2 Point Value = 3 Point Value = 5 Age 41-60 Minor surgery BMI > 25 kg/m2 Swollen legs Varicose veins or History of unexplained or recurrent spontaneous Oral contraceptives or hormone replacement Sepsis (< 1 month) Serious lung disease, including pneumonia (< 1 month) Abnormal pulmonary function Acute myocardial infarction Congestive heart failure (< 1 month) History of inflammatory bowel disease Medical patient at bed rest Age 61-74 Arthroscopic surgery Major open surgery (> 45 min) Laparoscopic surgery (> 45 min) Malignancy Confined to bed (> 72 hours) Immobilizing plaster cast Central venous access Age >= 75 History of VTE Family history of VTE Factor V Leiden Prothrombin [id number] Lupus anticoagulant Anticardiolipin antibodies Elevated serum homocysteine Heparin-induced thrombocytopenia Other congenital or acquired thrombophilia Stroke (< 1 month) Elective arthroplasty Hip, pelvis, or leg fracture Acute spinal cord injury (< 1 month) Prophylaxis Regimen Total Risk Factor Score Risk Level Prophylaxis Regimen 0-1 Low Early ambulation 2 Moderate Order ONE of the following: *Sequential Compression Device (SCD) *Heparin 5000 units SQ BID 3-4 Higher Order ONE of the following medications: *Heparin 5000 units SQ TID *Enoxaparin/Lovenox 40 mg SQ daily (WT < 150 kg, CrCl > 30 mL/min) *Enoxaparin/Lovenox 30 mg SQ daily (WT < 150 kg, CrCl > 10-29 mL/min) *Enoxaparin/Lovenox 30 mg SQ BID (WT < 150 kg, CrCl > 30 mL/min) AND/OR *Sequential Compression Device (SCD) 5 or more Highest Order ONE of the following medications: *Heparin 5000 units SQ TID (Preferred with Epidurals) *Enoxaparin/Lovenox 40 mg SQ daily (WT < 150 kg, CrCl > 30 mL/min) *Enoxaparin/Lovenox 30 mg SQ daily (WT < 150 kg, CrCl > 10-29 mL/min) *Enoxaparin/Lovenox 30 mg SQ BID (WT < 150 kg, CrCl > 30 mL/min) AND *Sequential Compression Device (SCD) Assessment and Plan Assessment and Plan Assessment/plan: 1. Left lower extremity numbness/weakness MRI of the lumbar spine showed a small 1.2 x 0.5 cm fluid collection in the posterior epidural space, concerning for infectious process Neurosurgery consulted, appreciate assistance Per neurosurgical recommendations, holding antibiotics at this time Blood cultures pending Status post fusion, continue home Flexeril and start oxycodone 2. Diabetes mellitus Holding home metformin, glimepiride Sliding-scale insulin Monitor blood glucose 3. Hypothyroidism Continue home Synthroid 5. Transaminitis AST/ALT 46/56 Holding home statin, [place] Monitor liver function FEN NPO NS at 100 cc/hr Electrolytes: monitor and replete prn Holding pharmacologic anticoagulation for possible fluid biopsy Kavita Hernandez MD Oct 25, 2017 03:38
[2017-10-25] MEDS: INSULIN NovoLIN REGULAR SUPPLEMENTAL SCALE SQ SCH ×4 (08:00→20:39)
[2017-10-25] MEDS: LEVOTHYROXINE SODIUM 50 MCG TAB PO SCH (08:04)
[2017-10-25 08:09] VITALS: BP 121/74; PULSE 98; RESP 19; TEMP 97.6; O2SAT 97
[2017-10-25 08:16] LABS: AUTOMATED NEUTROPHIL # 3.6 TH/MM3 (1.8-7.7); BASOPHIL % 0.7 % (0.0-2.0); EOSINOPHIL # 0.4 TH/MM3 (0-0.4); EOSINOPHIL % 6.7 % (0.0-4.0); HEMATOCRIT 33.4 % (35.0-46.0); HEMOGLOBIN 11.2 GM/DL (11.6-15.3); LYMPH % 26.2 % (9.0-44.0); LYMPHOCYTE # 1.7 TH/MM3 (1.0-4.8); MEAN CELL VOLUME 86.5 FL (80.0-100.0); MEAN CORPUSCULAR HGB CONC 33.5 % (32.0-36.0); MONO % 10.2 % (0.0-8.0); MONOCYTE # 0.7 TH/MM3 (0-0.9); NEUT % 56.2 % (16.0-70.0); PLATELET COUNT 297 TH/MM3 (150-450); RED BLOOD COUNT 3.86 MIL/MM3 (4.00-5.30); RED CELL DISTRIBUTION WIDTH 13.2 % (11.6-17.2); WHITE BLOOD COUNT 6.4 TH/MM3 (4.0-11.0)
[2017-10-25 08:24] LABS: INTERNATIONAL NORMALIZED RATIO 0.9 RATIO; PROTHROMBIN TIME - PATIENT 9.6 SEC (9.8-11.6)
[2017-10-25 08:45] LABS: BICARBONATE 26.6 MEQ/L (21.0-32.0); CALCIUM 9.5 MG/DL (8.5-10.1); CREATININE 1.07 MG/DL (0.50-1.00)
[2017-10-25] MEDS: DICYCLOMINE HCL 20 MG TAB PO SCH ×4 (08:54→20:39)
[2017-10-25] MEDS: PANTOPRAZOLE SOD 20 MG DELAYED RELEASE TAB PO SCH (08:54)
[2017-10-25] MEDS: DOCUSATE SODIUM 50 MG/SENNA 8.6 MG TAB PO SCH ×2 (08:55→20:39)
[2017-10-25] MEDS ORDERED: metFORMIN HCL 500 MG TAB PO SCH (09:00)
[2017-10-25] MEDS ORDERED: GLIMEPIRIDE 4 MG TAB PO SCH (09:00)
--- NOTE | 2017-10-25 09:37 | HHI.PR ---
Subjective Remarks Follow up for low back pain, LLE numbness, s/p recent extensive lumbar surgery. The patient reports continued LLE numbness, mostly throughout left anterior thigh. She states this is new for her. She believes she has some associated increased weakness of the LLE. She has continued weakness of RLE which she believes is at her baseline. Denies any fevers/chills. Denies any erythema/edema /drainage from the surgical site. She has been able to ambulate with her walker throughout the unit. She does complain of abdominal pain/distention secondary to not having a BM since Thursday 10/19. She has been given MOM, lactulose, and dalila-colace by the RN just prior to evaluation. Discussed giving enema if no relief with oral meds, patient agrees. Denies any nausea/vomiting. Tolerating oral intake. No other medical complaints at this time. Objective Vitals Vital Signs Date Time Temp Pulse Resp B/P (MAP) Pulse Ox O2 Delivery O2 Flow Rate FiO2 10/25/17 08:09 97.6 98 19 121/74 (90) 97 10/24/17 23:56 98.0 99 17 94/58 (70) 94 10/24/17 21:00 72 16 108/58 (75) 98 Room Air 10/24/17 19:16 87 18 109/72 (84) 98 Room Air 10/24/17 18:21 102 18 108/71 (83) 99 Room Air 10/24/17 16:29 88 18 110/65 (80) 95 Room Air 10/24/17 16:03 20 96 Room Air 10/24/17 15:12 98.2 119 16 154/65 (94) 96 I/O 10/24/17 10/24/17 10/24/17 10/25/17 10/25/17 10/25/17 07:00 15:00 23:00 07:00 15:00 23:00 Intake Total 1000 ml Output Total 1000 ml Balance 0 ml Intake IV Total 1000 ml Output Urine Total 1000 ml # Voids 2 # Bowel Movements 0 Result Diagram: 10/25/17 0803 10/25/17 0803 Imaging Last Impressions Abdomen/Pelvis CT 10/24/17 1542 Signed Impressions: Service Date/Time: Tuesday, October 24, 2017 16:05 - CONCLUSION: 1. Scattered diverticulosis without diverticulitis. 2. Distended urinary bladder containing air likely iatrogenic. 3. Bibasilar densities likely atelectasis. Jabari Brady MD Lumbar Spine MRI 10/24/17 0000 Signed Impressions: Service Date/Time: Tuesday, October 24, 2017 17:16 - CONCLUSION: 1. Severe stenosis at the L4-L5 level caused by combination of disc bulge, severe facet hypertrophy and epidural enhancement in the right lateral epidural space and exiting into the right neural foramina. The patient appears be status post right hemilaminectomy. There is a small 1.2 x 0.5 cm fluid collection seen in the posterior epidural space. Enhancement can be seen from postoperative change but appears quite prominent raising the current concern for superimposed inflammatory/infectious change. 2. Facet hypertrophy seen throughout. Misha Liu MD Objective Remarks GENERAL: Well-nourished, well-developed elderly female patient in [facility]. SKIN: Warm and dry. No rash. HEENT: Normocephalic. Atraumatic.Pupils equal and round. Mucous membranes pink and moist. CARDIOVASCULAR: Regular rate and rhythm. No murmur appreciated. RESPIRATORY: No accessory muscle use. Clear to auscultation. Breath sounds equal bilaterally. GASTROINTESTINAL: Abdomen firm, moderately distended, with mild diffuse TTP. Normoactive bowel sounds x4. MUSCULOSKELETAL: No obvious deformities. Extremities without clubbing, cyanosis , or edema. NEUROLOGICAL: Awake and alert. No obvious cranial nerve deficits. Diminished sensation throughout left anterior thigh compared to the right. 4/5 strength of LLE/RLE. 5/5 strength of LUE/RUE. Normal speech. PSYCHIATRIC: Appropriate mood and affect; insight and judgment normal. Medications and IVs Current Medications Medications (Trade) Dose Ordered Sig/Ning Route Start Time Stop Time Status Last Admin (Flexeril) 10 mg TID PRN PO 10/24/17 20:00 (Bentyl) 20 mg QID PO 10/24/17 21:00 10/25/17 08:54 (Estratest H.s.) 1 tab DAILY PO 10/25/17 09:00 10/25/17 11:08 (Synthroid) 50 mcg DAILY@0600 PO 10/25/17 06:00 10/25/17 08:04 (Protonix) 20 mg DAILY PO 10/25/17 09:00 10/25/17 08:54 (D50w (Vial) Inj) 50 ml UNSCH PRN IV PUSH 10/24/17 20:00 (Glucagon Inj) 1 mg UNSCH PRN OTHER 10/24/17 20:00 (NovoLIN R SUPPLEMENTAL SCALE) 1 ACHS SLIDING SCALE SQ 10/24/17 21:00 Sodium Chloride 1,000 ml @ 100 mls/hr Q10H IV 10/24/17 19:50 10/25/17 08:05 (NS Flush) 2 ml UNSCH PRN IV FLUSH 10/24/17 20:00 (NS Flush) 2 ml BID IV FLUSH 10/24/17 21:00 (Zofran Inj) 4 mg Q6H PRN IVP 10/24/17 20:00 (Narcan Inj) 0.4 mg UNSCH PRN IV PUSH 10/24/17 20:00 (Dalila-Colace) 1 tab BID PO 10/24/17 21:00 10/25/17 08:55 (Milk Of Magnesia Liq) 30 ml Q12H PRN PO 10/24/17 20:00 10/25/17 08:55 (Senokot) 17.2 mg Q12H PRN PO 10/24/17 20:00 10/25/17 08:55 (Dulcolax Supp) 10 mg DAILY PRN RECTAL 10/24/17 20:00 (Lactulose Liq) 30 ml DAILY PRN PO 10/24/17 20:00 10/25/17 08:55 (Roxicodone) 5 mg Q4H PRN PO 10/25/17 03:45 10/25/17 08:55 A/P Assessment and Plan 72-year-old female with a past medical history significant for diabetes mellitus and hypothyroidism who is status post L4-5 transforaminal interbody fusion, L4-5 pedicle screw fixation and decompressive laminectomy with foraminotomy and discectomy and cage placement presents to the ED for the evaluation of left lower extremity numbness that began Tuesday 10/24 7:30am. Left lower extremity numbness/weakness: s/p recent extensive lumbar surgery by Dr. Welch as above. -MRI of the lumbar spine showed a small 1.2 x 0.5 cm fluid collection in the posterior epidural space, concerning for infectious process -Neurosurgery consulted, appreciate assistance -Per neurosurgical recommendations, holding antibiotics at this time -Blood cultures with NGTD -continue home Flexeril and start oxycodone prn pain -seen by Dr. Sears, non-operative management recommended at this time -consult PT Diabetes mellitus -Holding home metformin, glimepiride -Sliding-scale insulin -Monitor blood glucose Hypothyroidism Continue home Synthroid Transaminitis -AST/ALT 46/56 -Holding home statin, [place] -Monitor liver function Severe Constipation: patient with no BM since 10/19 -give dalila-colace, MOM, lactulose -will give fleet enema today if no relief with oral meds DVT Prophylaxis: Holding pharmacologic anticoagulation incase surgical intervention warranted Nupur Early PA-C Oct 25, 2017 9:37 am
[2017-10-25] MEDS: ESTROGEN ESTERIF/ME TESTOST 0.625 MG/1.25 MG TAB PO SCH (11:08)
[2017-10-25 12:02] VITALS: BP 98/50; PULSE 100; RESP 18; TEMP 98.7; O2SAT 93
[2017-10-25] MEDS ORDERED: SOD PHOSPHATE/SOD BIPHOSPHATE (ADULT) ENEMA 133ML RECTAL ONE (13:30)
[2017-10-25 15:27] VITALS: BP 94/52; PULSE 98; RESP 18; TEMP 99.3; O2SAT 93
[2017-10-25] MEDS ORDERED: MAGNESIUM CITRATE SOLN 300 ML BTL PO ONE (17:45)
[2017-10-25 21:45] VITALS: BP 108/68; PULSE 103; RESP 18; TEMP 98.9; O2SAT 97
[2017-10-26 00:07] VITALS: BP 115/56; PULSE 96; RESP 18; TEMP 98.1; O2SAT 96
[2017-10-26 03:49] VITALS: BP 116/62; PULSE 94; RESP 16; TEMP 98.3; O2SAT 95
[2017-10-26] MEDS: LEVOTHYROXINE SODIUM 50 MCG TAB PO SCH (05:24)
[2017-10-26 07:28] LABS: AUTOMATED NEUTROPHIL # 3.8 TH/MM3 (1.8-7.7); BASOPHIL % 0.5 % (0.0-2.0); EOSINOPHIL # 0.3 TH/MM3 (0-0.4); EOSINOPHIL % 5.5 % (0.0-4.0); HEMATOCRIT 33.6 % (35.0-46.0); HEMOGLOBIN 11.1 GM/DL (11.6-15.3); LYMPH % 22.6 % (9.0-44.0); LYMPHOCYTE # 1.4 TH/MM3 (1.0-4.8); MEAN CELL VOLUME 87.2 FL (80.0-100.0); MEAN CORPUSCULAR HEMOGLOBIN 28.8 PG (27.0-34.0); MEAN PLATELET VOLUME 9.2 FL (7.0-11.0); MONO % 10.6 % (0.0-8.0); MONOCYTE # 0.7 TH/MM3 (0-0.9); NEUT % 60.8 % (16.0-70.0); PLATELET COUNT 302 TH/MM3 (150-450); RED BLOOD COUNT 3.85 MIL/MM3 (4.00-5.30); RED CELL DISTRIBUTION WIDTH 13.3 % (11.6-17.2); WHITE BLOOD COUNT 6.3 TH/MM3 (4.0-11.0)
[2017-10-26 07:54] LABS: ALBUMIN 2.8 GM/DL (3.4-5.0); AST (GOT) 28 U/L (15-37); BICARBONATE 28.6 MEQ/L (21.0-32.0); BLOOD UREA NITROGEN 12 MG/DL (7-18); CALCIUM 9.3 MG/DL (8.5-10.1); CHLORIDE 103 MEQ/L (98-107); CREATININE 1.03 MG/DL (0.50-1.00); GLOMERULAR FILTRATION RATE 52 ML/MIN (>89); GLUCOSE,RANDOM 104 MG/DL (74-106); SODIUM (NA) 138 MEQ/L (136-145)
[2017-10-26 07:55] LABS: ALT (GPT) 39 U/L (10-53)
[2017-10-26 07:57] LABS: ALKALINE PHOSPHATASE 81 U/L (45-117); TOTAL BILIRUBIN ADULT 0.5 MG/DL (0.2-1.0); TOTAL PROTEIN 6.8 GM/DL (6.4-8.2)
[2017-10-26] MEDS ORDERED: MIRA3350 PO (07:59)
[2017-10-26] MEDS: INSULIN NovoLIN REGULAR SUPPLEMENTAL SCALE SQ SCH (08:01)
--- NOTE | 2017-10-26 08:01 | HHI.FF ---
Face to Face Verification Diagnosis: (1) Status post lumbar surgery (2) Constipation (3) Diabetes mellitus (4) Hypothyroidism Physical Therapy Order: Evaluate and Treat, Improve ambulation, Strength and gait training Home Health Nursing Order: Medical education Signs/symptoms of disease process Nursing assessment with vital signs I have seen patient Aziza De Souza on 10/26/17. My clinical findings support the need for the requested home health care services because: Deconditioned w/ increased weakness Limited ability to care for self High risk of falls I certify that my clinical findings support that this patient is homebound because: Post-op weakness Unsteady gait/balance Unsafe to leave home unassisted Unable to use public transportation Nupur Early PA-C Oct 26, 2017 08:01
[2017-10-26 08:09] VITALS: BP 102/59; PULSE 90; RESP 16; TEMP 98.4; O2SAT 95
[2017-10-26] MEDS: SODIUM CHLORIDE 0.9% FLUSH 10 ML FLUSH IV FLUSH SCH (08:27)
[2017-10-26] MEDS: DOCUSATE SODIUM 50 MG/SENNA 8.6 MG TAB PO SCH (08:27)
[2017-10-26] MEDS: PANTOPRAZOLE SOD 20 MG DELAYED RELEASE TAB PO SCH (08:27)
[2017-10-26] MEDS: DICYCLOMINE HCL 20 MG TAB PO SCH (08:27)
[2017-10-26] MEDS: ESTROGEN ESTERIF/ME TESTOST 0.625 MG/1.25 MG TAB PO SCH (08:27)
--- NOTE | 2017-10-26 09:04 | HHI.DCPOC ---
Discharge Care Plan Diagnosis: (1) Status post lumbar surgery (2) Constipation (3) Diabetes mellitus (4) Hypothyroidism Goals to Promote Your Health * To prevent worsening of your condition and complications * To maintain your health at the optimal level Directions to Meet Your Goals Take your medications as prescribed Follow your dietary instruction Follow activity as directed Keep your appointments as scheduled Take your immunizations and boosters as scheduled If your symptoms worsen call your PCP, if no PCP go to Urgent Care Center or Emergency Room Smoking is Dangerous to Your Health. Avoid second hand smoke Call the 24-hour hour crisis hotline for domestic abuse at Nupur Early PA-C Oct 26, 2017 9:04 am
--- NOTE | 2017-10-26 09:11 | HHI.PR ---
Subjective Remarks Follow up for low back pain, LLE paresthesias, s/p lumbar surgery, and severe constipation. The patient reports feeling much better today. She had 4 bowel movements overnight with significant relief of her constipation. She reports her lower abdomen is sore however tolerable. She wants to go home. She is tolerating oral intake. Denies nausea/vomiting or fevers/chills. She is still ambulating with her walker without difficulty. She reports continued left thigh decreased sensation, unchanged compared to previous days. Denies any worsening numbness or weakness. She has no other medical complaints at this time. Objective Vitals Vital Signs Date Time Temp Pulse Resp B/P (MAP) Pulse Ox O2 Delivery O2 Flow Rate FiO2 10/26/17 08:09 98.4 90 16 102/59 (73) 95 10/26/17 03:49 98.3 94 16 116/62 (80) 95 10/26/17 00:07 98.1 96 18 115/56 (75) 96 10/26/17 00:00 16 10/25/17 21:45 98.9 103 18 108/68 (81) 97 10/25/17 21:45 98.9 10/25/17 15:27 99.3 98 18 94/52 (66) 93 10/25/17 12:02 98.7 100 18 98/50 (66) 93 I/O 10/25/17 10/25/17 10/25/17 10/26/17 10/26/17 10/26/17 07:00 15:00 23:00 07:00 15:00 23:00 # Bowel Movements 2 Result Diagram: 10/26/17 0650 10/26/17 0650 Imaging Last Impressions Abdomen/Pelvis CT 10/24/17 1542 Signed Impressions: Service Date/Time: Tuesday, October 24, 2017 16:05 - CONCLUSION: 1. Scattered diverticulosis without diverticulitis. 2. Distended urinary bladder containing air likely iatrogenic. 3. Bibasilar densities likely atelectasis. Jabari Brady MD Lumbar Spine MRI 10/24/17 0000 Signed Impressions: Service Date/Time: Tuesday, October 24, 2017 17:16 - CONCLUSION: 1. Severe stenosis at the L4-L5 level caused by combination of disc bulge, severe facet hypertrophy and epidural enhancement in the right lateral epidural space and exiting into the right neural foramina. The patient appears be status post right hemilaminectomy. There is a small 1.2 x 0.5 cm fluid collection seen in the posterior epidural space. Enhancement can be seen from postoperative change but appears quite prominent raising the current concern for superimposed inflammatory/infectious change. 2. Facet hypertrophy seen throughout. Misha Liu MD Objective Remarks GENERAL: Well-nourished, well-developed elderly female patient in NAD. SKIN: Warm and dry. No rash. HEENT: Normocephalic. Atraumatic.Pupils equal and round. Mucous membranes pink and moist. CARDIOVASCULAR: Regular rate and rhythm. No murmur appreciated. RESPIRATORY: No accessory muscle use. Clear to auscultation. Breath sounds equal bilaterally. GASTROINTESTINAL: Abdomen soft, nondistended today, mild LLQ tenderness to deep palpation. Normoactive bowel sounds x4. MUSCULOSKELETAL: No obvious deformities. Extremities without clubbing, cyanosis , or edema. NEUROLOGICAL: Awake and alert. No obvious cranial nerve deficits. Diminished sensation throughout left anterior thigh compared to the right. 4.5/5 strength of LLE/RLE. 5/5 strength of LUE/RUE. Normal speech. PSYCHIATRIC: Appropriate mood and affect; insight and judgment normal. Medications and IVs Current Medications Medications (Trade) Dose Ordered Sig/Ning Route Start Time Stop Time Status Last Admin (Flexeril) 10 mg TID PRN PO 10/24/17 20:00 (Bentyl) 20 mg QID PO 10/24/17 21:00 10/26/17 08:27 (Estratest H.s.) 1 tab DAILY PO 10/25/17 09:00 10/26/17 08:27 (Synthroid) 50 mcg DAILY@0600 PO 10/25/17 06:00 10/26/17 05:24 (Protonix) 20 mg DAILY PO 10/25/17 09:00 10/26/17 08:27 (D50w (Vial) Inj) 50 ml UNSCH PRN IV PUSH 10/24/17 20:00 (Glucagon Inj) 1 mg UNSCH PRN OTHER 10/24/17 20:00 (NovoLIN R SUPPLEMENTAL SCALE) 1 ACHS SLIDING SCALE SQ 10/24/17 21:00 (NS Flush) 2 ml UNSCH PRN IV FLUSH 10/24/17 20:00 (NS Flush) 2 ml BID IV FLUSH 10/24/17 21:00 10/26/17 08:27 (Zofran Inj) 4 mg Q6H PRN IVP 10/24/17 20:00 (Narcan Inj) 0.4 mg UNSCH PRN IV PUSH 10/24/17 20:00 (Dalila-Colace) 1 tab BID PO 10/24/17 21:00 10/25/17 20:39 (Milk Of Magnesia Liq) 30 ml Q12H PRN PO 10/24/17 20:00 10/25/17 08:55 (Senokot) 17.2 mg Q12H PRN PO 10/24/17 20:00 10/25/17 08:55 (Dulcolax Supp) 10 mg DAILY PRN RECTAL 10/24/17 20:00 (Lactulose Liq) 30 ml DAILY PRN PO 10/24/17 20:00 10/25/17 08:55 (Roxicodone) 5 mg Q4H PRN PO 10/25/17 03:45 10/26/17 00:21 A/P Assessment and Plan 72-year-old female with a past medical history significant for diabetes mellitus and hypothyroidism who is status post L4-5 transforaminal interbody fusion, L4-5 pedicle screw fixation and decompressive laminectomy with foraminotomy and discectomy and cage placement presents to the ED for the evaluation of left lower extremity numbness that began Tuesday 10/24 7:30am. Left lower extremity numbness/weakness: s/p recent extensive lumbar surgery by Dr. Welch as above. -MRI of the lumbar spine showed a small 1.2 x 0.5 cm fluid collection in the posterior epidural space, concerning for infectious process -Neurosurgery consulted, appreciate assistance -Per neurosurgical recommendations, holding antibiotics at this time -Blood cultures with NGTD -continue home Flexeril and pain control with oxycodone prn pain -seen by Dr. Sears, non-operative management recommended at this time -consult PT, recommends [facility], case management consulted -Discussed with Dr. Sears today 10/26, cleared for discharge, outpatient f/up Diabetes mellitus -Holding home metformin, glimepiride -Sliding-scale insulin -Monitor blood glucose, fairly well controlled Hypothyroidism Continue home Synthroid Transaminitis -AST/ALT 46/56 -Holding home statin, [place] -Monitor liver function, LFTs wnl today, resolved Severe Constipation: patient with no BM since 10/19 -given dalila-colace, MOM, lactulose, fleet enema, and mag citrate yesterday with significant relief, had 4 large BMs -resolved -instructed to take Miralax daily at home to avoid constipation DVT Prophylaxis: ambulation, held chemoprophylaxis incase surgery was indicated Discharge Planning Discharge patient to home with [facility] Condition on discharge: Stable Diabetic Diet as tolerated Ad Marcie activity Rx written: Miralax daily Follow-up with primary care physician and neurosurgeon Dr. Welch Attending Statement patient was seen and examined today. looks more comfortable. had a few BM's last night. no new complaints and wants to go home today. cleared by neurosurgery for discharge. will dc home. Nupur Early PA-C Oct 26, 2017 09:11 Giovanny Cooney MD Oct 26, 2017 09:31
--- NOTE | 2017-10-26 09:27 | PD.CONS ---
History of Present Illness Service Neurosurgery Consult Requested By Medicine service Reason for Consult Postoperative lower extremity numbness Primary Care Physician Rocco Terry M.D. Diagnoses: History of Present Illness 72-year-old female underwent lumbar laminectomy and interbody fusion per last . She states that 2 days ago she developed numbness in the left lateral thigh and yesterday she developed numbness in the right lateral thigh. She has been constipated. No loss of bowel or bladder control. No definite weakness in the lower extremities. She states that the lateral right lower extremity pain that she experienced preoperatively has resolved postoperative. No fevers or chills. No new upper extremity symptoms. She does give a history of some chronic weakness in the left arm and hand. Review of Systems Constitutional: DENIES: Fever Respiratory: DENIES: Cough Cardiovascular: DENIES: Chest pain Gastrointestinal: COMPLAINS OF: Constipation Musculoskeletal: COMPLAINS OF: Muscle aches, DENIES: Joint pain Hematologic/lymphatic: DENIES: Bruising Neurologic: COMPLAINS OF: Abnormal gait, DENIES: Headache Past Family Social History Allergies: Coded Allergies: oxycodone (Verified Allergy, Severe, Confusion, 10/24/17) PT BECOMES CONFUSED AND COMBATIVE Past Medical History Diabetes Hypothyroidism Past Surgical History Lumbar laminectomy and fusion last week. Previous cervical spine surgery Appendectomy Tonsillectomy Right shoulder surgery Reported Medications Reported Meds & Active Scripts Active Miralax Powder (Polyethylene Glycol 3350 Powder) 17 Gm Powd 17 Gm PO DAILY Mix and dissolve one measuring cap-ful (17 grams) in water or juice. Flexeril (Cyclobenzaprine HCl) 10 Mg Tab 10 Mg PO TID PRN [place] (Hydrocodone-Acetaminophen) 10-325 Mg Tab 1 Tab PO Q4H PRN Reported Dicyclomine (Dicyclomine HCl) 20 Mg Tab 20 Mg PO QID Glimepiride 4 Mg Tab 4 Mg PO DAILY Take with breakfast or first main meal Metformin (Metformin HCl) 1,000 Mg Tab 1,000 Mg PO DAILY With a meal Omeprazole 20 Mg Tab 20 Mg PO DAILY Synthroid (Levothyroxine Sodium) 75 Mcg Tab 50 Mcg PO DAILY Crestor (Rosuvastatin Calcium) 10 Mg Tab 20 Mg PO DAILY Esterified Estrogens-Methyltestosterone 0.625-1.25 Mg Tab 1 Tab PO DAILY Family History Diabetes Social History Does not smoke cigarettes. Drinks alcohol infrequently Physical Exam Vital Signs Vital Signs Date Time Temp Pulse Resp B/P (MAP) Pulse Ox O2 Delivery O2 Flow Rate FiO2 10/26/17 08:09 98.4 90 16 102/59 (73) 95 10/26/17 03:49 98.3 94 16 116/62 (80) 95 10/26/17 00:07 98.1 96 18 115/56 (75) 96 10/26/17 00:00 16 10/25/17 21:45 98.9 103 18 108/68 (81) 97 10/25/17 21:45 98.9 10/25/17 15:27 99.3 98 18 94/52 (66) 93 10/25/17 12:02 98.7 100 18 98/50 (66) 93 Physical Exam GENERAL: This is a well-nourished, well-developed patient, moderately uncomfortable SKIN: No rashes, ecchymoses or lesions. Cool and dry. Lumbar incision is dry and intact. No erythema edema drainage or excessive tenderness. HEAD: Atraumatic. Normocephalic. No temporal or scalp tenderness. EYES: Pupils equal round and reactive. Extraocular motions intact. No scleral icterus. No injection or drainage. ENT: Nose without bleeding, purulent drainage or septal hematoma. Throat without erythema, tonsillar hypertrophy or exudate. Uvula midline. Airway patent. NECK: Trachea midline. No JVD or lymphadenopathy. Supple, nontender, no meningeal signs. CARDIOVASCULAR: Regular rate and rhythm without murmurs, gallops, or rubs. RESPIRATORY: Clear to auscultation. Breath sounds equal bilaterally. No wheezes , rales, or rhonchi. GASTROINTESTINAL: Abdomen soft, non-tender, nondistended. No hepato-splenomegaly , or palpable masses. No guarding. MUSCULOSKELETAL: Extremities without clubbing, cyanosis, or edema. No joint tenderness, effusion, or edema noted. No calf tenderness. Negative Homans sign bilaterally. NEUROLOGICAL: Awake and alert oriented conversant appropriate Sensation intact light touch upper extremities Mild to moderate decreased sensation bilateral lateral thigh to light touch Strength within normal limits all major flexion-extension groups throughout the upper and lower extremities except for mild decrease left triceps and hand intrinsics which she states is chronic. Estrada's response absent bilateral No ankle clonus Laboratory Laboratory Tests Test 10/26/17 06:50 White Blood Count 6.3 Red Blood Count 3.85 Hemoglobin 11.1 Hematocrit 33.6 Mean Corpuscular Volume 87.2 Mean Corpuscular Hemoglobin 28.8 Mean Corpuscular Hemoglobin Concent 33.0 Red Cell Distribution Width 13.3 Platelet Count 302 Mean Platelet Volume 9.2 Neutrophils (%) (Auto) 60.8 Lymphocytes (%) (Auto) 22.6 Monocytes (%) (Auto) 10.6 Eosinophils (%) (Auto) 5.5 Basophils (%) (Auto) 0.5 Neutrophils # (Auto) 3.8 Lymphocytes # (Auto) 1.4 Monocytes # (Auto) 0.7 Eosinophils # (Auto) 0.3 Basophils # (Auto) 0.0 CBC Comment DIFF FINAL Differential Comment Blood Urea Nitrogen 12 Creatinine 1.03 Random Glucose 104 Total Protein 6.8 Albumin 2.8 Calcium Level 9.3 Alkaline Phosphatase 81 Aspartate Amino Transf (AST/SGOT) 28 Alanine Aminotransferase (ALT/SGPT) 39 Total Bilirubin 0.5 Sodium Level 138 Potassium Level 3.7 Chloride Level 103 Carbon Dioxide Level 28.6 Anion Gap 6 Estimat Glomerular Filtration Rate 52 Date/Time Source Procedure Growth Status 10/24/17 22:20 Blood Peripheral Aerobic Blood Culture - Preliminary NO GROWTH IN 1 DAY Resulted 10/24/17 22:20 Blood Peripheral Anaerobic Blood Culture - Preliminary NO GROWTH IN 1 DAY Resulted Result Diagram: 10/26/17 0650 10/26/17 0650 Imaging Last Impressions Abdomen/Pelvis CT 10/24/17 1542 Signed Impressions: Service Date/Time: Tuesday, October 24, 2017 16:05 - CONCLUSION: 1. Scattered diverticulosis without diverticulitis. 2. Distended urinary bladder containing air likely iatrogenic. 3. Bibasilar densities likely atelectasis. Jabari Brady MD Lumbar Spine MRI 10/24/17 0000 Signed Impressions: Service Date/Time: Tuesday, October 24, 2017 17:16 - CONCLUSION: 1. Severe stenosis at the L4-L5 level caused by combination of disc bulge, severe facet hypertrophy and epidural enhancement in the right lateral epidural space and exiting into the right neural foramina. The patient appears be status post right hemilaminectomy. There is a small 1.2 x 0.5 cm fluid collection seen in the posterior epidural space. Enhancement can be seen from postoperative change but appears quite prominent raising the current concern for superimposed inflammatory/infectious change. 2. Facet hypertrophy seen throughout. Misha Liu MD Assessment and Plan Assessment and Plan Impression: 1. Postoperative stenosis at the L4-5 surgical site. Most likely related to postoperative epidural hematoma. There does appear to be quite a bit of epidural enhancement on the MRI of the lumbar spine, but no definite abscess formation. She does not have any other findings to indicate infection at this point. Recommendations: Findings were discussed at length with the patient. Options of further observation versus surgical intervention with wound site exploration, evacuation of probable epidural hematoma fully discussed. She does not wish to proceed with surgery at this point. She is constipated, has not had a bowel movement since surgery, and is being treated for this constipation at the present time. She does not have any signs of cauda equina syndrome. She may have some mild right L5 sensory changes bilaterally, but no motor deficit. She wishes to continue conservative treatment and observation. She has been observed in the hospital without any further progression of deficit. Her vital signs remained stable. She would like to discharge home with follow-up as scheduled with neurosurgery. Signs and symptoms to watch for have been fully discussed and she is to return to the emergency room if any significant changes occur. Johnathan Sears MD Oct 26, 2017 09:27
== END 2017-10-26 18:44 | disposition home or self-care (01) ==
LOC: PHED 15:06 → PHEDA 20:01 → NEPHCDU 23:56
PROVIDERS: ADMIT Internal Medicine; ATTEND Internal Medicine
DX: R53.1 Weakness (principal); R20.0 Anesthesia of skin; K57.90 Diverticulosis of intestine, part unspecified, without perforation or abscess without bleeding; E11.9 Type 2 diabetes mellitus without complications; E03.9 Hypothyroidism, unspecified; R74.0 Nonspecific elevation of levels of transaminase and lactic acid dehydrogenase [LDH]; K59.00 Constipation, unspecified; M79.604 Pain in right leg; M48.061 Spinal stenosis, lumbar region without neurogenic claudication; R91.8 Other nonspecific abnormal finding of lung field; R11.2 Nausea with vomiting, unspecified; R10.30 Lower abdominal pain, unspecified; E78.00 Pure hypercholesterolemia, unspecified; K21.9 Gastro-esophageal reflux disease without esophagitis; M19.90 Unspecified osteoarthritis, unspecified site; Z79.899 Other long term (current) drug therapy; Z79.84 Long term (current) use of oral hypoglycemic drugs; Z98.1 Arthrodesis status
CPT/HCPCS: 72158; 74176; 80048; 80053; 81001; 82948; 85025; 85610; 85652; 85730; 87040; 94150; 96360; 96361; 96374; 96375; 97162; 99285; A9579; G0378; G8987; G8988; J2060; J2405; J7030; 99281